=== PATIENT | male | born 1980 | race Caucasian/White ===

== ENCOUNTER → 2017-03-10 | Outpatient (CLI) | payer MEDICARE, OTHER ==
--- NOTE | 2017-03-10 11:49 | KCIC ---
Left finger radiographs HISTORY: Pain and bruising of the third digit of the left hand, trauma 2 weeks ago COMPARISON: None FINDINGS: 3 views of the left hand with attention to the third digit are submitted. Joint spaces are adequate. No acute fracture is identified. IMPRESSION: 1. No acute osseous abnormality is identified. Electronically signed by: John Kasper MD (03/10/2017 11:45 AM)
== END | disposition home or self-care (01) ==
LOC: KCIC 11:13
PROVIDERS: ATTEND Family Medicine
DX: M79.642 Pain in left hand (principal); S60.032A Contusion of left middle finger without damage to nail, initial encounter; X58.XXXA Exposure to other specified factors, initial encounter; Y93.89 Activity, other specified; Y92.89 Other specified places as the place of occurrence of the external cause; Y99.8 Other external cause status
CPT/HCPCS: 73140